=== PATIENT | female | born 1965 | race Caucasian/White ===

== ENCOUNTER 2016-07-15 22:13 | Emergency (ER) | payer SELFPAY ==
[2016-07-15] MEDS ORDERED: NACL 0.9% 1000 ML 1,000 ML IV ONE ×2 (22:28)
[2016-07-15 22:37] VITALS: BP 78/53
[2016-07-15 22:44] LABS: Basophils % (Auto) 0.6 % (0.0-1.8); Mean Corpuscular HGB Conc 30 % (30-34); Mean Corpuscular Hemoglobin 30 pg (28-32); Mean Corpuscular Volume 100 fl (79-97); Platelet Count 295 K/mm3 (140-440); Red Blood Count 3.92 M/mm3 (3.65-5.03); Red Cell Distribution Width 16.3 % (13.2-15.2); White Blood Count 16.3 K/mm3 (4.5-11.0)
[2016-07-15 22:54] LABS: INR 1.57 (0.87-1.13)
[2016-07-15 22:55] LABS: Partial Thromboplastin Time 34.5 Sec. (24.2-36.6)
[2016-07-15] MEDS ORDERED: ADRENALIN ONE (23:00)
[2016-07-15] MEDS ORDERED: CALCIUM CHLORIDE IV ONE (23:00)
[2016-07-15] MEDS ORDERED: ATROPINE 0.1% (CARDIAC) ONE (23:00)
[2016-07-15] MEDS ORDERED: SODIUM BICARBONATE IV ONE (23:00)
[2016-07-15] MEDS ORDERED: D50W (25GM) IV ONE ×2 (23:00→23:05)
[2016-07-15 23:01] LABS: Creatine Kinase MB 2.1 ng/mL (0.0-4.0)
[2016-07-15 23:04] LABS: Alanine Aminotransferase 22 units/L (7-56); Albumin 3.4 g/dL (3.9-5); Albumin/Globulin Ratio 0.9 %; Alkaline Phosphatase 224 units/L (35-129); Anion Gap 33 mmol/L; Blood Urea Nitrogen 10 mg/dL (7-17); Calcium 9.7 mg/dL (8.4-10.2); Carbon Dioxide 13 mmol/L (22-30); Chloride 97.4 mmol/L (98-107); Creatine Kinase 36 units/L (30-135); Glucose 210 mg/dL (65-100); Sodium 137 mmol/L (137-145); Total Protein 7.3 g/dL (6.3-8.2)
[2016-07-15 23:05] LABS: Hematocrit 39.4 % (30.3-42.9); Hemoglobin 11.9 gm/dl (10.1-14.3)
[2016-07-15 23:08] LABS: Potassium 6.4 mmol/L (3.6-5.0)
[2016-07-15] MEDS ORDERED: NACL ONE (23:30)
[2016-07-15] MEDS ORDERED: ADRENALIN 8 MG in NACL 0.9% 250ML 242 ML IV SCH (23:44)
--- NOTE | 2016-07-16 00:35 | Emergency Department Report ---
ED Altered Mental Status HPI - General Chief Complaint: Altered Mental Status Stated Complaint: ALTERED MENTAL STATUS Time Seen by Provider: 07/15/16 22:13 Source: patient, family, EMS Mode of arrival: Stretcher Limitations: Language Barrier - History of Present Illness Initial Comments: 50-year-old Greek-speaking female presents to the hospital via EMS with her Icelandic-speaking family member/daughter presents at the bedside presents to the hospital with altered mental status, respiratory distress, hypotension, and tachycardia. Apparently patient collapsed while walking to the bathroom and became unresponsive. Patient did have episodes of shortness of breath earlier today as reported by family member. No specific complaints of chest pain but patient does complain of abdominal pain. End of June patient had pancreatic surgery for pancreatic cancer. Patient has shallow rapid breathing. Patient presents her abdomen as area of pain. No complaints of chest pain. Patient is unable to have a full conversation. Accu-Chek reported to be in the 200s per EMS. EMS reports that patient will have a tachycardia rhythm and then bradycardia down to the 30s. - Related Data Allergies Allergy/AdvReac Type Severity Reaction Status Date / Time No Known Allergies Allergy Verified 07/15/16 23:45 ED Review of Systems ROS: Stated complaint: ALTERED MENTAL STATUS Other details as noted in HPI Comment: Unobtainable due to pts medical conditions (Limited due to patient's current mental status and distress) ED Past Medical Hx - Past Medical History Previous Medical History?: Yes Additional medical history: pancreatic cancer - Surgical History Past Surgical History?: Yes Additional Surgical History: july 01 70% pancreas removed - Social History Smoking Status: Never Smoker Substance Use Type: None ED Physical Exam - General Limitations: Language Barrier - Other Other exam information: General: Depressed mental status Head exam: Atraumatic, normocephalic Eyes exam: Pupils unresponsive 5 mm ENT: Pale, Neck exam: Normal inspection Respiratory exam: Shallow rapid breathing with clear breath Cardiovascular: Tachycardic regular rhythm Abdomen: Soft, nondistended, vertical epigastric surgical scar with Steri- Strips in place, mild generalized tenderness Extremity: Full range of motion normal inspection no deformity Back: Normal Inspection Neurologic: Lethargic but opens eyes to tactile stimulation and follows commands although generalized weakness no focal weakness or numbness ED Course Vital Signs 07/15/16 07/15/16 22:27 22:40 Pulse Rate 136 H 115 H Respiratory 40 H Rate Blood Pressure 78/53 O2 Sat by Pulse 91 95 Oximetry - Reevaluation(s) Reevaluation #1: 07/16/16 00:35 Hospital course: Shortly after patient arrival she became less responsive with diminished respiratory rate and became minimally responsive requiring intubation. No meds given for intubation. No gag reflex. Pupils minimally responsive. Initially patient had a tachycardic rhythm and pressure in the 70s to 80s which responded to normal saline bolus. 2 L given immediately with improvement in her systolic pressure to the 100s. Then patient gradually started to bradycardia down and became pulseless. During resuscitation efforts patient received multiple doses of epi and they will gain improvement and pulse in spontaneous circulation improvement temporarily but then was slowly bradycardia down requireing chest compressions and administration of medication. Initial dose of epi Given at 22:55. She received a total of epinephrine 6 doses, 3 Amps of bicarbonate for a metabolic/ lactic acidosis and hyperkalemia, 1 amp of calcium chloride and (for hyperkalemia), insulin and one half amp D50 for hyperkalemia, a total of 6 L of normal saline, and 1 mg of atropine. She was maxed out on Levophed (sbp remained in 40's) drip then switched to epinephrine which again was maxed out with a systolic pressure high in the 40s. I spoke to daughter throughout resuscitation efforts and to explain the critical state of the patient. They were brought into room during resuscitation efforts and were at the bedside with patient bradycardia down to asystole. I believe that further efforts were unlikely to be successful given that patient was unable to sustain any pulse or pressure without chest compressions and intermittent epinephrine doses. - Central Line Placement Right Femoral Consent Obtained: emergent situation Time Out Performed: Yes Patient Placed on Monitor/Pulse Ox: Yes MD Prep: mask, gown, gloves Central Line Prep: Chlorhexidine scrub, sterile drapes applied Ultrasound Used for Placement: Yes Central Line Lumen Inserted: triple Bloods Obtained for Lab: Yes Central Line Position: good blood return, sutured in place with nyl Dressing Applied: Tegaderm Post Procedure X-Ray: tip of catheter in good p Patient Tolerated Procedure: well Complications: none - EJ/Peripheral Line Neck R Time Out Performed: Yes Indications: multiple IV sites needed Skin Cleansed in Sterile Fashion: Yes Size: 20 Dressing Placed: Tegaderm Patient Tolerated Procedure: well, no complications - Intubation Time Out Performed: Yes Sedative: none Laryngoscope: none ET Tube Size: 7.5 Tube Secured Depth (cm): 22 Tube Secured Location: lips Tube Placement Confirmation: visualized tube passing t, equal breath sounds bilat, no breath sounds over epi, confirmation by capnometr Patient Tolerated Procedure: well Intubation Complications: none - Lab Data Result diagrams: 07/15/16 22:15 07/15/16 22:15 Lab Results 07/15/16 07/15/16 07/15/16 Range/Units 22:15 22:15 22:15 WBC 16.3 H (4.5-11.0) K/mm3 RBC 3.92 (3.65-5.03) M/mm3 Hgb 11.9 (10.1-14.3) gm/dl Hct 39.4 (30.3-42.9) % MCV 100 H (79-97) fl MCH 30 (28-32) pg MCHC 30 (30-34) % RDW 16.3 H (13.2-15.2) % Plt Count 295 (140-440) K/mm3 Lymph % (Auto) 21.0 (13.4-35.0) % Cameron % (Auto) 4.6 (0.0-7.3) % Eos % (Auto) 0.0 (0.0-4.3) % Baso % (Auto) 0.6 (0.0-1.8) % Lymph # 3.4 (1.2-5.4) K/mm3 Cameron # 0.7 (0.0-0.8) K/mm3 Eos # 0.0 (0.0-0.4) K/mm3 Baso # 0.1 (0.0-0.1) K/mm3 Seg Neutrophils % 73.8 H (40.0-70.0) % Seg Neutrophils # 12.0 H (1.8-7.7) K/mm3 PT (12.2-14.9) Sec. INR (0.87-1.13) APTT (24.2-36.6) Sec. VBG pH (7.320-7.420) Sodium 137 (137-145) mmol/L Potassium 6.4 H* (3.6-5.0) mmol/L Chloride 97.4 L (98-107) mmol/L Carbon Dioxide 13 L (22-30) mmol/L Anion Gap 33 mmol/L BUN 10 (7-17) mg/dL Creatinine 0.8 (0.7-1.2) mg/dL Estimated GFR > 60 ml/min BUN/Creatinine Ratio 12.50 % Glucose 210 H (65-100) mg/dL Lactic Acid (0.7-2.0) mmol/L Calcium 9.7 (8.4-10.2) mg/dL Total Bilirubin 0.60 (0.1-1.2) mg/dL AST 40 (5-40) units/L ALT 22 (7-56) units/L Alkaline Phosphatase 224 H (35-129) units/L Total Creatine Kinase 36 (30-135) units/L CK-MB (CK-2) 2.1 (0.0-4.0) ng/mL CK-MB (CK-2) Rel Index 5.8 H (0-4) Troponin T 0.058 H (0.00-0.029) ng/mL Total Protein 7.3 (6.3-8.2) g/dL Albumin 3.4 L (3.9-5) g/dL Albumin/Globulin Ratio 0.9 % Triglycerides 140 (2-149) mg/dL Cholesterol 138 (50-199) mg/dL LDL Cholesterol Direct 69 (50-130) mg/dL HDL Cholesterol 41 (40-59) mg/dL Cholesterol/HDL Ratio 3.36 % Lipase 18 (13-60) units/L 07/15/16 07/15/16 07/15/16 Range/Units 22:15 22:15 22:15 WBC (4.5-11.0) K/mm3 RBC (3.65-5.03) M/mm3 Hgb (10.1-14.3) gm/dl Hct (30.3-42.9) % MCV (79-97) fl MCH (28-32) pg MCHC (30-34) % RDW (13.2-15.2) % Plt Count (140-440) K/mm3 Lymph % (Auto) (13.4-35.0) % Cameron % (Auto) (0.0-7.3) % Eos % (Auto) (0.0-4.3) % Baso % (Auto) (0.0-1.8) % Lymph # (1.2-5.4) K/mm3 Cameron # (0.0-0.8) K/mm3 Eos # (0.0-0.4) K/mm3 Baso # (0.0-0.1) K/mm3 Seg Neutrophils % (40.0-70.0) % Seg Neutrophils # (1.8-7.7) K/mm3 PT 18.7 H (12.2-14.9) Sec. INR 1.57 H (0.87-1.13) APTT 34.5 (24.2-36.6) Sec. VBG pH 6.914 L* (7.320-7.420) Sodium (137-145) mmol/L Potassium (3.6-5.0) mmol/L Chloride (98-107) mmol/L Carbon Dioxide (22-30) mmol/L Anion Gap mmol/L BUN (7-17) mg/dL Creatinine (0.7-1.2) mg/dL Estimated GFR ml/min BUN/Creatinine Ratio % Glucose (65-100) mg/dL Lactic Acid 13.90 H* (0.7-2.0) mmol/L Calcium (8.4-10.2) mg/dL Total Bilirubin (0.1-1.2) mg/dL AST (5-40) units/L ALT (7-56) units/L Alkaline Phosphatase (35-129) units/L Total Creatine Kinase (30-135) units/L CK-MB (CK-2) (0.0-4.0) ng/mL CK-MB (CK-2) Rel Index (0-4) Troponin T (0.00-0.029) ng/mL Total Protein (6.3-8.2) g/dL Albumin (3.9-5) g/dL Albumin/Globulin Ratio % Triglycerides (2-149) mg/dL Cholesterol (50-199) mg/dL LDL Cholesterol Direct (50-130) mg/dL HDL Cholesterol (40-59) mg/dL Cholesterol/HDL Ratio % Lipase (13-60) units/L - EKG Data -: EKG Interpreted by Me 07/16/16 00:39 Initial EKG performed at 2217 shows significant artifact therefore repeated. Repeat EKG at 20:21 shows sinus tach at 1:15 with a right bundle-branch block with nonspecific ST abnormality no ST elevation or T-wave inversions - Medical Decision Making Despite resuscitation efforts patient would not maintain a pulse without intermittent chest compressions and epinephrine and therefore - Differential Diagnosis sepsis, PE, anemia, hypoperfusion, SD, arrhythmia, pneumonia Critical Care Time: Yes Critical care time in (mins) excluding proc time.: 75 (in room directing resuscitation efforts to family) Critical care attestation.: If time is entered above; I have spent that time in minutes in the direct care of this critically ill patient, excluding procedure time. ED Disposition Clinical Impression: Cardiopulmonary arrest, Lactic acidosis, Hyperkalemia, History of pancreatic cancer, History of abdominal surgery Disposition: Is pt being admited?: No Condition: Stable Time of Disposition: 00:42
[2016-07-16] MEDS ORDERED: NACL 0.9% 1000 ML 4,000 ML ONE (06:54)
[2016-07-16] MEDS ORDERED: LEVOPHED DRIP 4 MG/NS 250 ML 4 MG/250 ML BAG IV ONE (06:57)
== END 2016-07-16 02:33 ==
LOC: ED 22:13
DX: I46.9 Cardiac arrest, cause unspecified (principal); E87.2 Acidosis; E87.5 Hyperkalemia; C25.9 Malignant neoplasm of pancreas, unspecified
CPT/HCPCS: 31500; 36415; 36569; 80053; 80061; 82140; 82550; 82553; 82805; 83690; 84484; 85025; 85610; 85730; 93005; 93010; 96361; 96365; 96375; 99291; 99292; J0171; J0461; J7030; J7050; 94002; J1815